=== PATIENT | male | born 1980 | race Caucasian/White ===

== ENCOUNTER 2016-08-25 10:10 | Day surgery (SDC) | payer MEDICARE, MEDICAID ==
[~2016-08-25] VITALS: Ht 175.3 cm; Wt 96.0 kg
[2016-08-25] MEDS ORDERED: PAPAVERINE 30 MG/ML, 2ML ONE (10:28)
[2016-08-25] MEDS ORDERED: BACITRACIN 50,000 UNIT ONE (10:29)
[2016-08-25] MEDS ORDERED: THROMBIN 5,000 UNIT VIAL TP ONE (10:29)
[2016-08-25] MEDS ORDERED: HEPARIN 1,000 UNITS/ML, 10ML ONE ×2 (10:29→12:32)
[2016-08-25 10:35] VITALS: BP 124/86
[2016-08-25] MEDS ORDERED: CYCL-259 PO (11:04)
[2016-08-25] MEDS ORDERED: OXYC-229 PO (11:04)
[2016-08-25] MEDS ORDERED: ALLO100T30 PO (11:04)
[2016-08-25] MEDS ORDERED: CALC1CAP8 PO (11:04)
[2016-08-25] MEDS ORDERED: APIX5TAB PO (11:04)
[2016-08-25] MEDS ORDERED: CARV6.252 PO (11:04)
[2016-08-25] MEDS ORDERED: ATOR80TA75 PO (11:04)
[2016-08-25] MEDS ORDERED: SPIR25TA3 PO (11:04)
[2016-08-25] MEDS ORDERED: PANT40TA5 PO (11:04)
[2016-08-25] MEDS ORDERED: CALC667C PO (11:04)
[2016-08-25] MEDS ORDERED: DIGO125T PO (11:04)
[2016-08-25] MEDS ORDERED: METO5TAB5 PO (11:04)
[2016-08-25] MEDS ORDERED: FURO-92 PO (11:04)
[2016-08-25] MEDS ORDERED: CHOL100015 PO (11:04)
[2016-08-25] MEDS ORDERED: ASCO100072 PO (11:04)
[2016-08-25] MEDS ORDERED: DOCU100T3 PO (11:04)
[2016-08-25] MEDS ORDERED: ERYT250C8 PO (11:04)
[2016-08-25] MEDS ORDERED: INSU100C SQ-INSULIN (11:06)
[2016-08-25] MEDS ORDERED: INSU100V8 SQ (11:06)
[2016-08-25] MEDS ORDERED: LIDOCAINE 1%, 2ML ONE (11:07)
[2016-08-25] MEDS ORDERED: BUPIVACAINE/PF-EPI 0.5% 1:200K ONE (11:31)
[2016-08-25] MEDS ORDERED: SODIUM CHLORIDE 0.9% 1,000 ML IV SCH (11:38)
[2016-08-25 11:50] LABS: BLOOD UREA NITROGEN 40 mg/dL (7-18)
[2016-08-25] MEDS ORDERED: EPHEDRINE 50 MG/ML, 1ML ONE (11:51)
[2016-08-25] MEDS ORDERED: PROPOFOL 10 MG/ML, 20ML ONE (11:51)
[2016-08-25] MEDS ORDERED: ONDANSETRON 2MG/ML, 2ML ONE (11:51)
[2016-08-25] MEDS ORDERED: CEFAZOLIN 1,000 MG ONE (11:51)
[2016-08-25 11:54] LABS: ASPARTATE AMINO TRANSFERASE 16 U/L (15-37)
[2016-08-25] MEDS ORDERED: FENTANYL PF 250 MCG/5ML ONE (11:55)
[2016-08-25] MEDS ORDERED: INSULIN SINGLE DOSE, ER SQ-INSULIN ONE (11:57)
[2016-08-25] MEDS ORDERED: LIDOCAINE 1%, 2ML SQ PRN (12:00)
[2016-08-25] MEDS ORDERED: OXYcodone 5 MG/5 ML ORAL.SOL UDC PO PRN (13:00)
[2016-08-25] MEDS ORDERED: HYDROmorphone 1 MG/ML, 1ML IV PRN (13:00)
[2016-08-25] MEDS ORDERED: FENTANYL PF 100 MCG/2ML IV PRN (13:00)
[2016-08-25] MEDS ORDERED: ACETAMINOPHEN 325 MG TABLET PO PRN (13:00)
[2016-08-25] MEDS ORDERED: LABETALOL 5MG/ML, 20ML IV PRN (13:00)
[2016-08-25] MEDS ORDERED: hydrALAzine 20 MG/ML, 1ML IV PRN (13:00)
[2016-08-25] MEDS ORDERED: ONDANSETRON 2MG/ML, 2ML IVPush PRN (13:00)
[2016-08-25] MEDS ORDERED: VISIPAQUE 270 MG/ML, 50ML BOTTLE ONE (13:19)
[2016-08-25] MEDS ORDERED: OXYcodone 5 MG/5 ML ORAL.SOL UDC ONE (13:40)
== END 2016-08-25 15:50 | disposition home or self-care (01) ==
LOC: OUT 10:10 → EDSTATUS 11:30 → OUT 15:50
PROVIDERS: ATTEND Surgery
DX: T82.868A Thrombosis due to vascular prosthetic devices, implants and grafts, initial encounter (principal); E10.22 Type 1 diabetes mellitus with diabetic chronic kidney disease; I13.2 Hypertensive heart and chronic kidney disease with heart failure and with stage 5 chronic kidney disease, or end stage renal disease; N18.6 End stage renal disease; E78.5 Hyperlipidemia, unspecified; Z99.2 Dependence on renal dialysis; Z98.890 Other specified postprocedural states; Z95.810 Presence of automatic (implantable) cardiac defibrillator; Z87.891 Personal history of nicotine dependence; Z89.431 Acquired absence of right foot; Z83.3 Family history of diabetes mellitus; Z82.49 Family history of ischemic heart disease and other diseases of the circulatory system; Z80.0 Family history of malignant neoplasm of digestive organs; Z80.8 Family history of malignant neoplasm of other organs or systems; Y83.2 Surgical operation with anastomosis, bypass or graft as the cause of abnormal reaction of the patient, or of later complication, without mention of misadventure at the time of the procedure
CPT/HCPCS: 36415; 36831; 37248; 80053; 82962; 85025; 93005; C1725; C1751; C1757; C1769; C1894; J0690; J1644; J1815; J2405; J2704; J3010; J3490; J7030; Q9966; 36902; J2440